=== PATIENT | female | born 1955 | race Caucasian/White ===

== ENCOUNTER 2024-01-19 15:51 | Emergency (ER) | payer MEDICARE, OTHER ==
[~2024-01-19] VITALS: Ht 162.6 cm; Wt 77.3 kg
[2024-01-19] MEDS ORDERED: VENL37.598 PO (16:07)
[2024-01-19 19:12] VITALS: BP 160/73; TEMP 97.3; O2SAT 99
== END 2024-01-19 19:14 | disposition home or self-care (01) ==
LOC: M ED 15:51
DX: S52.531A Colles' fracture of right radius, initial encounter for closed fracture (principal); S52.611A Displaced fracture of right ulna styloid process, initial encounter for closed fracture; W11.XXXA Fall on and from ladder, initial encounter; Y92.9 Unspecified place or not applicable; Y93.9 Activity, unspecified; Y99.9 Unspecified external cause status; Z88.5 Allergy status to narcotic agent; Z88.8 Allergy status to other drugs, medicaments and biological substances

== ENCOUNTER 2024-01-23 11:04 | Day surgery (SDC) | payer MEDICARE ==
[~2024-01-23] VITALS: Ht 162.6 cm; Wt 78.0 kg
[~2024-01-23 11:04] MED LIST: VENL37.598 PO
[2024-01-23] MEDS ORDERED: MIDAZOLAM INJ 2MG/2ML VIAL IV PRN (11:20)
[2024-01-23] MEDS ORDERED: fentaNYL 100 MCG/2 ML INJECTION IV PRN ×3 (11:20→12:10)
[2024-01-23] MEDS ORDERED: diphenhydrAMINE 50MG/ML VIAL IV PRN (11:20)
[2024-01-23] MEDS ORDERED: ROPIvacaine 0.5% 30ML VIAL PN ONE (11:20)
[2024-01-23] MEDS ORDERED: ONDANSETRON 4MG 2ML VIAL IV PRN ×2 (11:20→16:15)
[2024-01-23] MEDS ORDERED: HYDROMORPHONE HCL 0.5 MG/ 0.5 ML SYRINGE IV PRN (11:20)
[2024-01-23] MEDS ORDERED: oxyCODONE 5MG TAB PO PRN (11:20)
[2024-01-23] MEDS: MIDAZOLAM INJ 2MG/2ML VIAL IV PRN (13:31)
[2024-01-23] MEDS: dexAMETHasone 10MG/1ML VIAL PRES.FREE PN ONE (13:32)
[2024-01-23] MEDS ORDERED: propofoL 200 MG/20 ML VIAL As Ordered ONE (13:44)
[2024-01-23] MEDS ORDERED: LIDOCAINE 2% 100MG/5ML SDV (FOR ANES.) As Ordered ONE (13:44)
[2024-01-23] MEDS ORDERED: ONDANSETRON 4MG 2ML VIAL As Ordered ONE (13:44)
[2024-01-23] MEDS ORDERED: dexmedeTOMIDine (4MCG/ML)200MCG/50ML BTL (PRECEDEX) As Ordered ONE (13:45)
[2024-01-23] MEDS: BACITRACIN OINTMENT 30GM TUBE As Ordered ONE (14:35)
[2024-01-23] MEDS ORDERED: SCOPOLAMINE 1MG TRANSDERMAL PATCH As Ordered ONE (15:03)
[2024-01-23] MEDS: ceFAZolin SOD 2 GM in IV 1 EA IV ONE (15:13)
[2024-01-23] MEDS ORDERED: ACETAMINOPHEN 1000MG/100ML IV BAG As Ordered ONE (15:17)
[2024-01-23] MEDS ORDERED: KETOROLAC 60MG 2ML VIAL As Ordered ONE (15:59)
[2024-01-23] MEDS ORDERED: PHENYLephrine 500MCG 5ML (100MCG/ML) SYRINGE As Ordered ONE (16:00)
[2024-01-23] MEDS ORDERED: ePHEDrine SULFATE 25 MG/5 ML(5MG/ML) SYRINGE As Ordered ONE (16:00)
[2024-01-23] MEDS ORDERED: PERC5TAB12 PO (16:43)
[2024-01-23 17:34] VITALS: BP 145/75; TEMP 97.6; O2SAT 98
== END 2024-01-23 17:42 | disposition home or self-care (01) ==
LOC: M SDC 11:04
PROVIDERS: ATTEND Orthopaedic Surgery Hand Surgery
DX: S52.571A Other intraarticular fracture of lower end of right radius, initial encounter for closed fracture (principal); X58.XXXA Exposure to other specified factors, initial encounter; Y92.9 Unspecified place or not applicable; Y93.9 Activity, unspecified; Y99.9 Unspecified external cause status; E78.5 Hyperlipidemia, unspecified; Z79.899 Other long term (current) drug therapy; Z88.2 Allergy status to sulfonamides; Z88.8 Allergy status to other drugs, medicaments and biological substances
CPT/HCPCS: 25609; 64418; 76000; C1713; C9290; J0131; J0665; J0690; J1100; J1885; J2250; J2371; J2405; J3010

== ENCOUNTER → 2024-02-07 | Outpatient (CLI) | payer MEDICARE ==
[~2024-02-07] MED LIST changes: +PERC5TAB12 PO
== END ==
LOC: M SOG 07:59
PROVIDERS: ATTEND Physician Assistant
DX: S52.571A Other intraarticular fracture of lower end of right radius, initial encounter for closed fracture (principal); Y93.9 Activity, unspecified; Y92.9 Unspecified place or not applicable

== ENCOUNTER → 2024-03-07 | Outpatient (CLI) | payer MEDICARE | LOC: M SOG 07:55 | PROVIDERS: ATTEND Physician Assistant | DX: S52.571A Other intraarticular fracture of lower end of right radius, initial encounter for closed fracture (principal) ==

== ENCOUNTER → 2024-04-03 | Outpatient (REF) | payer MEDICARE ==
[2024-04-03 14:32] LABS: ALKALINE PHOSPHATASE 73 U/L (35-104); ALT/SGPT 27 U/L (7.0-40); AST/SGOT 21 U/L (<34); BILIRUBIN,TOTAL 0.8 MG/DL (0.3-1.2); BLOOD UREA NITROGEN 14 MG/DL (9-23); CALCIUM LEVEL 9.2 MG/DL (8.3-10.6); CARBON DIOXIDE LEVEL 28 MMOL/L (20-31); CHLORIDE LEVEL 105 MMOL/L (98-107); CHOLESTEROL LEVEL 272 MG/DL (<200); CHOLESTEROL RISK RATIO 5.06 (<5); CREATININE FOR GFR 0.92 MG/DL (0.55-1.30); GLOMERULAR FILTRATION RATE > 60.0 (>45); GLUCOSE, FASTING 102 MG/DL (74-106); HDL CHOLESTEROL 53.7 MG/DL (>40); LDL CHOLESTEROL 196.5 MG/DL (<100); NON-HDL-C 218.3 MG/DL; POTASSIUM SERUM 4.6 MMOL/L (3.5-5.1); SODIUM LEVEL 143 MMOL/L (136-145); TRIGLYCERIDES LEVEL 109 MG/DL (<150)
[2024-04-03 14:34] LABS: THYROID STIMULATING HORMONE 3.222 uIU/ML (0.55-4.78); TOTAL 25(OH) VITAMIN D 21.4 NG/ML (20.0-100.0)
[2024-04-03 15:04] LABS: HIV 1&2 SCREEN NEGATIVE (NEGATIVE)
[2024-04-03 15:12] LABS: HEPATITIS C VIRUS ABY INDEX 0.12 INDEX (<0.8)
== END ==
LOC: M LAB REF 12:51
PROVIDERS: ATTEND Physician Assistant
DX: Z11.9 Encounter for screening for infectious and parasitic diseases, unspecified (principal); E66.9 Obesity, unspecified; E55.9 Vitamin D deficiency, unspecified; Z79.899 Other long term (current) drug therapy

== ENCOUNTER → 2024-04-16 | Outpatient (CLI) | payer MEDICARE | LOC: M SOG 07:49 | PROVIDERS: ATTEND Physician Assistant | DX: S52.571D Other intraarticular fracture of lower end of right radius, subsequent encounter for closed fracture with routine healing (principal) ==

== ENCOUNTER 2024-05-15 12:55 | Emergency (ER) | payer MEDICARE ==
[~2024-05-15] VITALS: Ht 160 cm; Wt 80.6 kg
[2024-05-15 14:45] LABS: BASO % 0.5 % (0.0-1.0); EOS % 0.5 % (0.0-3.0); HEMOGLOBIN 14.6 g/dl (12.0-15.5); LYMPH # 1.8 10^3/uL (1.5-5.0); LYMPH % 32.6 % (24.0-44.0); MEAN CORPUSCULAR HEMOGLOBIN 31.9 pg (27.0-33.0); MEAN CORPUSCULAR HGB CONC 34.8 g/dl (32.0-36.5); MEAN CORPUSCULAR VOLUME 91.9 fl (80.0-96.0); MONO # 0.5 10^3/uL (0.0-0.8); MONO % 9.1 % (2.0-8.0); NEUTROPHILS # 3.2 10^3/uL (1.5-8.5); NEUTROPHILS % 57.1 % (36.0-66.0); PLATELET COUNT, AUTOMATED 210 10^3/uL (150-450); RED BLOOD COUNT 4.57 10^6/uL (4.00-5.40); WHITE BLOOD COUNT 5.6 10^3/uL (4.0-10.0)
[2024-05-15 15:03] LABS: ERYTHROCYTE SEDIMENTATION RATE 7 mm/hr (0-30)
[2024-05-15 18:34] VITALS: BP 166/93; TEMP 97.6; O2SAT 97
== END 2024-05-15 19:34 | disposition home or self-care (01) ==
LOC: M ED 12:55
DX: H11.32 Conjunctival hemorrhage, left eye (principal); F43.10 Post-traumatic stress disorder, unspecified; Z79.899 Other long term (current) drug therapy; Z88.5 Allergy status to narcotic agent; Z88.8 Allergy status to other drugs, medicaments and biological substances

== ENCOUNTER → 2025-01-21 | Outpatient (CLI) | payer MEDICARE | LOC: M WHC 09:40 | PROVIDERS: ATTEND Physician Assistant | DX: Z12.31 Encounter for screening mammogram for malignant neoplasm of breast (principal) ==

== ENCOUNTER 2025-02-22 17:11 | Emergency (ER) | payer MEDICARE ==
[~2025-02-22] VITALS: Ht 162.6 cm; Wt 80.7 kg
[2025-02-22] MEDS ORDERED: VENL75CA47 (17:23)
[2025-02-22] MEDS ORDERED: ZOVI5OIN8 TOP (19:44)
[2025-02-22 19:50] VITALS: BP 146/76; TEMP 98.4; O2SAT 97
== END 2025-02-22 19:52 | disposition home or self-care (01) ==
LOC: M ED 17:11
DX: S52.125A Nondisplaced fracture of head of left radius, initial encounter for closed fracture (principal); W19.XXXA Unspecified fall, initial encounter; Y92.009 Unspecified place in unspecified non-institutional (private) residence as the place of occurrence of the external cause; Y93.K1 Activity, walking an animal; Y99.9 Unspecified external cause status; F43.10 Post-traumatic stress disorder, unspecified; F41.9 Anxiety disorder, unspecified; Z88.5 Allergy status to narcotic agent; Z88.8 Allergy status to other drugs, medicaments and biological substances